=== PATIENT | female | born 1945 | race Caucasian/White ===

== ENCOUNTER 2016-07-24 14:52 | Emergency (ER) | payer MEDICARE, BC ==
[2016-07-24] MEDS ORDERED: KETOROLAC 60 MG/2 ML VIAL IM ONE (16:14)
== END 2016-07-24 16:44 | disposition home or self-care (01) ==
LOC: ER 14:52
DX: M25.471 Effusion, right ankle (principal); S93.401A Sprain of unspecified ligament of right ankle, initial encounter; W01.0XXA Fall on same level from slipping, tripping and stumbling without subsequent striking against object, initial encounter; S90.01XA Contusion of right ankle, initial encounter
CPT/HCPCS: 96372